=== PATIENT | female | born 1930 | race African-American/Black ===

== ENCOUNTER → 2017-06-05 | Outpatient (CLI) | payer MEDICARE, OTHER ==
[~2017-06-05] MED LIST: BUPIVACAINE MPF 0.25% 10 ML VIAL.; methylPREDNISolone ACETATE 40 MG/ML VIAL.
== END ==
LOC: PNCL 11:39
DX: M54.81 Occipital neuralgia (principal); Z88.0 Allergy status to penicillin; Z88.1 Allergy status to other antibiotic agents; Z88.8 Allergy status to other drugs, medicaments and biological substances; Z79.01 Long term (current) use of anticoagulants; Z95.0 Presence of cardiac pacemaker; Z79.899 Other long term (current) drug therapy
CPT/HCPCS: 64405; J1030; J3490

== ENCOUNTER → 2018-04-16 | Day surgery (SDC) | payer MEDICARE, OTHER ==
[~2018-04-16] MED LIST changes: +ACET1TAB33 PO; +ACET325T9 PO; +ALLO100T PO; +ALPR0.254 PO; +ALPR0.5T PO; +AMIO200T4 PO; +APIX2.5T PO; +ASPI-630 PO; +ATOR10TA PO; +ATOR10TA60 PO; +ATOR40TA59 PO; +BUDE0.5A NEB; -BUPIVACAINE MPF 0.25% 10 ML VIAL.; +BUPR1PAT8 TP; +BYSTOLIC10 MG PO; +CALC500T31 PO; +CHOL500016 PO; +DICL100G18 TP; +DILT30TA26 PO; +DOXY100C2 PO; +ESOM40CA25 PO; +FERR325C PO; +FURO20TA3 PO; +FURO40TA4 IVP; +FURO40TA4 PO; +GLIM4TAB2 PO; +GLIP10TA13 PO; +HYDR-2761 PO; +INSU100C SQ; +INSU100I13 SQ; +INSU100V13 SQ; +IPRA3AMP29 NEB; +ISOS30TA4 PO; +IV NORMAL SALINE 1000ML BAG 1,000 ML IV SCH; +LIDO700A21 TP; +LIDOCAINE; +LIDOCAINE 1% PF 2 ML VIAL. ONE; +LISI-338 PO; +MAGN400T22 PO; +MAGN400T3 PO; +MECL12.52 PO; +MECL25TA3 PO; +METH4TAB2 PO; +METH4TAB7 IVP; +METO25TA4 PO; +MONT10TA49 PO; +NIFE60TA12 PO; +NITR0.4T22 SL; +PANT40TA77 PO; +PHEN177S54 MM; +PIOG15TA42 PO; +PRED20TA PO; +PROPOFOL 20 ML IV ONE; +ROPI0.5T PO; +SENN-37 PO; +SUCR1TAB35 PO; +TRAZ-118 PO; +UBID100C PO; +[UNRECOGNIZED DRUG - OTHER]; -methylPREDNISolone ACETATE 40 MG/ML VIAL.
[2018-04-16 11:28] VITALS: BP 144/89
--- NOTE | 2018-04-19 14:19 | PATHOLOGY ---
[facility] Accession Number: [id number] . 01 Material submitted: . TRANSVERSE COLON POLYP . 01 Clinical history: . Rectal bleeding . 02 Diagnosis: Colon biopsy, transverse colon polyp: - Tubular adenoma. . (JPM:mm; 04/19/2018) QL/04/19/2018 . 02 Comment: There is no high grade dysplasia or evidence of malignancy. . (JPM:mm; 04/19/2018) . 02 Electronically signed: . Florian Prabhakar MD, Pathologist NPI- [id number] . 01 Gross description: . Received in formalin labeled "Flucas, Shaina, transverse colon polyp," is a single segment of carrillo soft tissue measuring 0.4 cm in maximum dimension. The specimen is entirely submitted in cassette A1. (TSD; 04/16/2018) TOB/TOB . 02 Pathologist provided ICD-10: D12.3 . 02 CPT . 080247 Specimen Comment: A courtesy copy of this report has been sent to Specimen Comment: [phone], . Specimen Comment: Report sent to / DR MADRIGAL Performed at: 01 [facility] [address], [place] [id number] MD Obi Woodall MD Phone: [phone] Performed at: 02 [facility] [address] [place], [place] [id number] MD Florian Prabhakar MD Phone: [phone]
== END | disposition home or self-care (01) ==
LOC: ENDOS 09:00
PROVIDERS: ATTEND Internal Medicine Gastroenterology
DX: D12.3 Benign neoplasm of transverse colon (principal); K64.0 First degree hemorrhoids; K57.30 Diverticulosis of large intestine without perforation or abscess without bleeding; I48.91 Unspecified atrial fibrillation; I25.10 Atherosclerotic heart disease of native coronary artery without angina pectoris; I13.0 Hypertensive heart and chronic kidney disease with heart failure and stage 1 through stage 4 chronic kidney disease, or unspecified chronic kidney disease; I50.9 Heart failure, unspecified; E11.22 Type 2 diabetes mellitus with diabetic chronic kidney disease; N18.9 Chronic kidney disease, unspecified; K21.9 Gastro-esophageal reflux disease without esophagitis; M19.90 Unspecified osteoarthritis, unspecified site; D64.9 Anemia, unspecified; N28.1 Cyst of kidney, acquired; I27.20 Pulmonary hypertension, unspecified; Z90.49 Acquired absence of other specified parts of digestive tract; Z95.0 Presence of cardiac pacemaker; Z96.653 Presence of artificial knee joint, bilateral; Z86.73 Personal history of transient ischemic attack (TIA), and cerebral infarction without residual deficits; Z88.0 Allergy status to penicillin; Z88.1 Allergy status to other antibiotic agents; Z88.8 Allergy status to other drugs, medicaments and biological substances; Z79.899 Other long term (current) drug therapy; Z98.890 Other specified postprocedural states
CPT/HCPCS: 45380; 82962; J2704; 88305

== ENCOUNTER 2018-08-06 10:29 | Emergency (ER) | payer MEDICARE, OTHER ==
[~2018-08-06] VITALS: Ht 163.8 cm; Wt 81.6 kg
[~2018-08-06 10:29] MED LIST changes: -DOXY100C2 PO; -IPRATRPIUM/ALBUTEROL 0.5/2.5MG 3 ML NEBU. NEB ONE; -IV RINGERS,LACTATED 1000ML 1,000 ML IV SCH; -LIDOCAINE 1% PF 2 ML VIAL. ID PRN; -METH4TAB2 PO; -MIDAZOLAM HCL/PF 2 MG/2 ML VIAL. IV PRN; -fentaNYL PF VIAL 100 MCG/2 ML VIAL IV PRN
[2018-08-06] MEDS ORDERED: IPRATRPIUM/ALBUTEROL 0.5/2.5MG 3 ML NEBU. NEB ONE (11:00)
[2018-08-06] MEDS ORDERED: ALBUTEROL SULFATE 2.5 MG/3 ML NEBU. CONT NEB ONE (11:00)
--- NOTE | 2018-08-06 11:07 | RAD ---
PORTABLE CHEST 1V History: Chest pain, shortness of breath Comparison: March 19, 2018 Findings: Single view of the chest is submitted. There is again left electronic cardiac device. Pericardial cardiac silhouette is enlarged although unchanged. There is no pneumothorax, pleural fluid, lobar infiltrate. There is atherosclerotic calcification near aortic arch. Impression: 1. No acute radiographic abnormality is identified. There is again enlargement of the pericardial cardiac silhouette. Electronically signed by: Giovanni Be MD (08/06/2018 11:04 AM) [facility]
--- NOTE | 2018-08-06 11:20 | EKG ---
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
[2018-08-06 12:10] LABS: CALCIUM 9.5 mg/dL (8.5-10.1); CREATININE 1.8 mg/dL (0.6-1.0); GFR 32.1; POTASSIUM 4.6 mmol/L (3.5-5.1)
[2018-08-06 12:19] LABS: ALBUMIN 3.9 g/dL (3.4-5.0); ALBUMIN/GLOBULIN RATIO 1.2 (1.0-1.7); TOTAL BILIRUBIN 0.3 mg/dL (0.2-1.0); TOTAL PROTEIN 7.1 g/dL (6.4-8.2)
[2018-08-06] MEDS ORDERED: methylPREDNISolone SOD SUCC PF 125 MG/2 ML VIAL. IV ONE (13:30)
[2018-08-06 13:52] LABS: BASO % 1 % (0-3); EOS # 0.1 x10^3/uL (0.0-0.7); EOS % 2 % (0-3); HEMATOCRIT 34.5 % (36.0-47.0); LYMPH # 2.9 x10^3/uL (1.0-4.8); LYMPH % 38 % (24-48); MEAN CORPUSCULAR HEMOGLOBIN 28 pg (25-35); MEAN CORPUSCULAR HGB CONC 32 g/dL (31-37); MEAN CORPUSCULAR VOLUME 89 fL (79-100); MONO # 0.5 x10^3/uL (0.0-1.1); MONO % 7 % (0-9); NEUT # 4.2 x10^3uL (1.8-7.7); NEUT % 54 % (31-73); PLATELET COUNT 159 x10^3/uL (140-400); RED CELL DISTRIBUTION WIDTH 15.8 % (11.5-14.5); WHITE BLOOD COUNT 7.8 x10^3/uL (4.0-11.0)
[2018-08-06] MEDS ORDERED: DOXYCYCLINE HYCLATE 100 MG in IV DEXTROSE 5% 100ML 100 ML IV ONE (14:00)
[2018-08-06] MEDS ORDERED: DOXY100C2 PO (14:16)
[2018-08-06] MEDS ORDERED: METH4TAB2 PO (14:16)
--- NOTE | 2018-08-06 14:17 | PHYS DOC ---
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 Patient had a scheduled endoscopy today and complaining of shortness of breath for a few days and sent from GI lab to ER for evaluation. Patient complaining of nonproductive cough without fever and chills. Patient noticed chest pain, nausea and vomiting, urinary symptom, sick contact. Review of Systems Review of Systems Constitutional: Denies fever or chills [] Eyes: Denies change in visual acuity, redness, or eye pain [] HENT: Denies nasal congestion or sore throat [] Respiratory: Reports cough and shortness of breath Cardiovascular: No additional information not addressed in HPI [] GI: Denies abdominal pain, nausea, vomiting, bloody stools or diarrhea [] : Denies dysuria or hematuria [] Musculoskeletal: Denies back pain or joint pain [] Integument: Denies rash or skin lesions [] Neurologic: Denies headache, focal weakness or sensory changes [] Endocrine: Denies polyuria or polydipsia [] All other systems were reviewed and found to be within normal limits, except as documented in this note. Current Medications Current Medications Current Medications Medications (Trade) Dose Ordered Sig/Nissa Start Time Stop Time Status Last Admin Dose Admin Albuterol Sulfate (Ventolin Neb Soln) 15 mg 1X ONCE 08/06/18 11:00 08/06/18 11:01 DC 08/06/18 11:09 15 MG Albuterol/ Ipratropium (Duoneb) 3 ml 1X ONCE 08/06/18 11:00 08/06/18 11:01 DC 08/06/18 11:09 3 ML Doxycycline Hyclate 100 mg/ Dextrose 100 ml @ 50 mls/hr 1X ONCE 08/06/18 14:00 08/06/18 15:54 DC 08/06/18 13:39 50 MLS/HR Methylprednisolone Sodium Succinate (SOLU-Medrol 125MG VIAL) 125 mg 1X ONCE 08/06/18 13:30 08/06/18 13:31 DC 08/06/18 13:38 125 MG Allergies Allergies Allergies Coded Allergies Type Severity Reaction Last Updated Verified Penicillins Allergy Intermediate rash 08/06/18 Yes amoxicillin Allergy Intermediate rash 08/06/18 Yes cephalexin Allergy Intermediate rash 08/06/18 Yes clavulanic acid Allergy Intermediate rash 08/06/18 Yes cyclobenzaprine Allergy Intermediate 08/06/18 Yes influenza virus vaccine trivalent Allergy Intermediate 08/06/18 Yes metoclopramide Allergy Intermediate 08/06/18 Yes Physical Exam Physical Exam Constitutional: Well developed, well nourished, mild distress, non-toxic appearance. [] HENT: Normocephalic, atraumatic Eyes: PERRLA, EOMI, conjunctiva normal, no discharge. [] Neck: Normal range of motion, no tenderness, supple, no stridor. [] Cardiovascular:Heart rate regular rhythm, no murmur [] Lungs & Thorax: Bilateral breath sounds clear to auscultation [] Abdomen: Bowel sounds normal, soft, no tenderness, no masses, no pulsatile masses. [] Skin: Warm, dry, no erythema, no rash. [] Back: No tenderness, no CVA tenderness. [] Extremities: No tenderness, no cyanosis, no clubbing, ROM intact, no edema. [] Neurologic: Alert and oriented X 3, normal motor function, normal sensory function, no focal deficits noted. [] Psychologic: Affect anxious, judgement normal, mood normal. [] Current Patient Data Vital Signs Vital Signs Date Time Temp Pulse Resp B/P (MAP) Pulse Ox O2 Delivery O2 Flow Rate FiO2 08/06/18 15:00 72 151/67 (95) 97 Room Air 08/06/18 10:29 98.1 18 98.1 Lab Values Laboratory Tests Test 08/06/18 11:40 08/06/18 11:54 08/06/18 11:55 Sodium Level 144 mmol/L (136-145) Potassium Level 4.6 mmol/L (3.5-5.1) Chloride Level 106 mmol/L (98-107) Carbon Dioxide Level 27 mmol/L (21-32) Anion Gap 11 (6-14) Blood Urea Nitrogen 22 mg/dL (7-20) H Creatinine 1.8 mg/dL (0.6-1.0) H Estimated GFR (Cockcroft-Gault) 32.1 BUN/Creatinine Ratio 12 (6-20) Glucose Level 116 mg/dL (70-99) H Calcium Level 9.5 mg/dL (8.5-10.1) Total Bilirubin 0.3 mg/dL (0.2-1.0) Aspartate Amino Transferase (AST) 18 U/L (15-37) Alanine Aminotransferase (ALT) 15 U/L (14-59) Alkaline Phosphatase 47 U/L (46-116) Creatine Kinase 108 U/L (26-192) Troponin I Quantitative 0.043 ng/mL (0.000-0.055) TU-Qcv-K-Type Natriuretic Peptide 1236 pg/mL (0-449) H Total Protein 7.1 g/dL (6.4-8.2) Albumin 3.9 g/dL (3.4-5.0) Albumin/Globulin Ratio 1.2 (1.0-1.7) POC Troponin I 0.05 ng/ml (<0.08) White Blood Count 7.8 x10^3/uL (4.0-11.0) Red Blood Count 3.90 x10^6/uL (3.50-5.40) Hemoglobin 11.0 g/dL (12.0-15.5) L Hematocrit 34.5 % (36.0-47.0) L Mean Corpuscular Volume 89 fL (79-100) Mean Corpuscular Hemoglobin 28 pg (25-35) Mean Corpuscular Hemoglobin Concent 32 g/dL (31-37) Red Cell Distribution Width 15.8 % (11.5-14.5) H Platelet Count 159 x10^3/uL (140-400) Neutrophils (%) (Auto) 54 % (31-73) Lymphocytes (%) (Auto) 38 % (24-48) Monocytes (%) (Auto) 7 % (0-9) Eosinophils (%) (Auto) 2 % (0-3) Basophils (%) (Auto) 1 % (0-3) Neutrophils # (Auto) 4.2 x10^3uL (1.8-7.7) Lymphocytes # (Auto) 2.9 x10^3/uL (1.0-4.8) Monocytes # (Auto) 0.5 x10^3/uL (0.0-1.1) Eosinophils # (Auto) 0.1 x10^3/uL (0.0-0.7) Basophils # (Auto) 0.0 x10^3/uL (0.0-0.2) Laboratory Tests 08/06/18 11:55 Laboratory Tests 08/06/18 11:40 EKG EKG EKG interpreted by me. EKG at 1042 showed sinus rhythm at rate of 70, prolonged MD interval at 3 axis deviation, nonspecific intraventricular block, no acute ST and T-wave abnormalities. Radiology/Procedures Radiology/Procedures [facility] [address] [place] [address] IMAGING REPORT Signed PATIENT: EM GOLDSTEIN ACCOUNT: [id number] : 1930 LOCATION: ER AGE: 88 SEX: F EXAM STATUS: REG ER ORD. PHYSICIAN: ROSANA HERNANDEZ MD REASON: chest pain and shortness of breath PROCEDURE: PORTABLE CHEST 1V PORTABLE CHEST 1V History: Chest pain, shortness of breath Comparison: March 19, 2018 Findings: Single view of the chest is submitted. There is again left electronic cardiac device. Pericardial cardiac silhouette is enlarged although unchanged. There is no pneumothorax, pleural fluid, lobar infiltrate. There is atherosclerotic calcification near aortic arch. Impression: 1. No acute radiographic abnormality is identified. There is again enlargement of the pericardial cardiac silhouette. Electronically signed by: Mack Be MD (08/06/2018 11:04 AM) [facility] DICTATED and SIGNED BY: MACK BE MD DATE: 08/06/18 1104 Course & Med Decision Making Course & Med Decision Making Pertinent Labs and Imaging studies reviewed. (See chart for details) Evaluation of patient in ER showed 88-year-old female patient with history of COPD and complaining of shortness of breath for several days. Patient had O2 sat of more than 95% upon she was in ER. Patient had unremarkable labs and chest x- ray. Patient treated with Solu-Medrol and nebulizer treatment and felt better. Plan to discharge patient home with diagnose of COPD exacerbation. Dragon Disclaimer Dragon Disclaimer This [employer] medical record was generated, in whole or in part, using a voice recognition dictation system. Departure Departure Impression: Primary Impression: Acute exacerbation of chronic obstructive pulmonary disease (COPD) Additional Impression: Chronic renal insufficiency Disposition: HOME, SELF-CARE (at 1409) Condition: IMPROVED Referrals: OLEG MADRIGAL MD (PCP) Patient Instructions: Chronic Obstructive Pulmonary Disease Exacerbation, Chronic Renal Insufficiency Additional Instructions: Continue home medication Follow-up with your primary care physician in 3-5 days Return to ER if not getting better Scripts Methylprednisolone (MEDROL) 4 Mg Tab.ds.pk 1 PKG PO UD for inflammation, #1 PKG Prov: ROSANA HERNANDEZ MD 08/06/18 Doxycycline Hyclate (DOXYCYCLINE HYCLATE) 100 Mg Capsule 1 CAP PO BID, #14 CAP Prov: ROSANA HERNANDEZ MD 08/06/18 Problem Qualifiers Additional Impression: Chronic renal insufficiency Chronic kidney disease stage: unspecified stage Qualified Codes: N18.9 - Chronic kidney disease, unspecified ROSANA HERNANDEZ MD August 06, 2018 14:17
[2018-08-06 15:00] VITALS: BP 151/67
== END 2018-08-06 15:50 | disposition home or self-care (01) ==
LOC: ER 10:29
DX: J44.1 Chronic obstructive pulmonary disease with (acute) exacerbation (principal); E11.22 Type 2 diabetes mellitus with diabetic chronic kidney disease; I13.0 Hypertensive heart and chronic kidney disease with heart failure and stage 1 through stage 4 chronic kidney disease, or unspecified chronic kidney disease; I50.9 Heart failure, unspecified; N18.9 Chronic kidney disease, unspecified; Z86.73 Personal history of transient ischemic attack (TIA), and cerebral infarction without residual deficits; Z90.89 Acquired absence of other organs; Z90.49 Acquired absence of other specified parts of digestive tract; Z96.649 Presence of unspecified artificial hip joint; Z96.659 Presence of unspecified artificial knee joint
CPT/HCPCS: 36415; 71045; 80053; 82550; 83880; 84484; 85025; 93005; 94644; 96365; 96366; 96375; 99285; J2930; J3490; J7613; J7620; 94640

== ENCOUNTER → 2018-08-06 | Day surgery (SDC) | payer MEDICARE, OTHER ==
[~2018-08-06] MED LIST changes: +IPRATRPIUM/ALBUTEROL 0.5/2.5MG 3 ML NEBU. NEB ONE; -IV NORMAL SALINE 1000ML BAG 1,000 ML IV SCH; +IV RINGERS,LACTATED 1000ML 1,000 ML IV SCH; -LIDO700A21 TP; +LIDO700A39 TP; +LIDOCAINE 1% PF 2 ML VIAL. ID PRN; -LIDOCAINE 1% PF 2 ML VIAL. ONE; +MIDAZOLAM HCL/PF 2 MG/2 ML VIAL. IV PRN; -MONT10TA49 PO; +MONT10TA9 PO; +PANT40TA3 PO; -PANT40TA77 PO; -PROPOFOL 20 ML IV ONE; +fentaNYL PF VIAL 100 MCG/2 ML VIAL IV PRN
[2018-08-06 10:05] VITALS: BP 127/63
== END ==
LOC: ENDOS 09:24
PROVIDERS: ATTEND Internal Medicine Gastroenterology
DX: K31.89 Other diseases of stomach and duodenum (principal); Z53.9 Procedure and treatment not carried out, unspecified reason; K21.9 Gastro-esophageal reflux disease without esophagitis; E78.00 Pure hypercholesterolemia, unspecified; I25.2 Old myocardial infarction; K44.9 Diaphragmatic hernia without obstruction or gangrene; I25.10 Atherosclerotic heart disease of native coronary artery without angina pectoris; F32.9 Major depressive disorder, single episode, unspecified; E11.9 Type 2 diabetes mellitus without complications; J43.9 Emphysema, unspecified; Z88.1 Allergy status to other antibiotic agents; Z88.0 Allergy status to penicillin; Z88.8 Allergy status to other drugs, medicaments and biological substances; Z95.0 Presence of cardiac pacemaker; Z86.73 Personal history of transient ischemic attack (TIA), and cerebral infarction without residual deficits; Z79.82 Long term (current) use of aspirin; Z98.890 Other specified postprocedural states; Z90.49 Acquired absence of other specified parts of digestive tract; Z96.649 Presence of unspecified artificial hip joint; Z96.659 Presence of unspecified artificial knee joint; Z79.84 Long term (current) use of oral hypoglycemic drugs
CPT/HCPCS: 94640

== ENCOUNTER 2019-09-20 18:08 | Inpatient (IN) | payer MEDICARE, OTHER ==
[~2019-09-20] VITALS: Ht 163.8 cm; Wt 84.6 kg
[~2019-09-20 18:08] MED LIST changes: -DICL100G18 TP; +DICL100G54 TP; +DOXY100C2 PO; -GLIM4TAB2 PO; +GLIM4TAB8 PO; +LIDO700A21 TP; -LIDO700A39 TP; -MAGN400T3 PO; +MAGN400T5 PO; +MECL-75 PO; -MECL12.52 PO; +MECL12.573 PO; -MECL25TA3 PO; +METH4TAB2 PO; +MONT10TA49 PO; -MONT10TA9 PO; -PANT40TA3 PO; +PANT40TA77 PO
[2019-09-20 18:35] LABS: BASO # 0.1 x10^3/uL (0.0-0.2); BASO % 1 % (0-3); EOS # 0.2 x10^3/uL (0.0-0.7); EOS % 2 % (0-3); HEMATOCRIT 28.1 % (36.0-47.0); HEMOGLOBIN 9.4 g/dL (12.0-15.5); LYMPH # 3.4 x10^3/uL (1.0-4.8); LYMPH % 33 % (24-48); MEAN CORPUSCULAR HEMOGLOBIN 29 pg (25-35); MEAN CORPUSCULAR HGB CONC 34 g/dL (31-37); MEAN CORPUSCULAR VOLUME 87 fL (79-100); MONO # 0.7 x10^3/uL (0.0-1.1); MONO % 7 % (0-9); NEUT # 5.7 x10^3/uL (1.8-7.7); NEUT % 57 % (31-73); PLATELET COUNT 188 x10^3/uL (140-400); RED BLOOD COUNT 3.24 x10^6/uL (3.50-5.40); RED CELL DISTRIBUTION WIDTH 15.6 % (11.5-14.5)
--- NOTE | 2019-09-20 18:42 | RAD ---
INDICATION: Reason: chest pain / Spl. Instructions: / History: COMPARISON: August 06, 2018 FINDINGS: Single view of chest obtained. Degenerative changes of bilateral shoulders as well as acromioclavicular joints. Postoperative changes to the lower cervical spine with fusion hardware. Cardiac silhouette is mildly enlarged with calcific atherosclerosis as well as pacemaker are again seen. No definite new region of focal airspace consolidation. IMPRESSION: * Similar exam compared to prior without a new region of consolidation. Electronically signed by: Brady Cole MD (09/20/2019 6:39 PM) [id number]
[2019-09-20 18:44] LABS: CALCIUM 8.8 mg/dL (8.5-10.1); CREATININE 2.4 mg/dL (0.6-1.0); POTASSIUM 3.8 mmol/L (3.5-5.1)
[2019-09-20 18:50] LABS: ALBUMIN 3.6 g/dL (3.4-5.0); ALBUMIN/GLOBULIN RATIO 1.1 (1.0-1.7); TOTAL BILIRUBIN 0.2 mg/dL (0.2-1.0); TOTAL PROTEIN 6.9 g/dL (6.4-8.2)
--- NOTE | 2019-09-20 18:58 | PHYS DOC ---
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 Patient states chest pain substernal in the left chest. At times radiates up to the left neck. Patient states pain is been constant since onset. She states she has some shortness of breath has had some nausea. She rates her pain a 4 out of 10. Was treated with aspirin by EMS. Patient states at home she is taken nitro with minimal relief. Review of Systems: Review of Systems: Constitutional: Denies fever or chills. [] Eyes: Denies change in visual acuity. [] HENT: Denies nasal congestion or sore throat. [] Respiratory: Denies cough positive shortness of breath. [] Cardiovascular: Positive chest pain GI: Denies abdominal pain,vomiting, bloody stools or diarrhea. [Positive nausea] : Denies dysuria. [] Musculoskeletal: Denies back pain or joint pain. [] Integument: Denies rash. [] Neurologic: Denies headache, focal weakness or sensory changes. [] Endocrine: Denies polyuria or polydipsia. [] Lymphatic: Denies swollen glands. [] Psychiatric: Denies depression or anxiety. [] Heart Score: HEART Score for Chest Pain: HEART Score for Chest Pain Response (Comments) Value History Moderately Suspicious 1 ECG Nonspecific Repolarizatio 1 Age > 65 2 Risk Factors >3 Risk Factors or Hx CAD 2 Troponin < Normal Limit 0 Total 6 Risk Factors: Risk Factors: DM, Current or recent (<one month) smoker, HTN, HLP, family history of CAD, obesity. Risk Scores: Score 0 - 3: 2.5% MACE over next 6 weeks - Discharge Home Score 4 - 6: 20.3% MACE over next 6 weeks - Admit for Clinical Observation Score 7 - 10: 72.7% MACE over next 6 weeks - Early Invasive Strategies Allergies: Allergies: Allergies Coded Allergies Type Severity Reaction Last Updated Verified Penicillins Allergy Intermediate rash 5/31/19 Yes amoxicillin Allergy Intermediate rash 08/06/18 Yes cephalexin Allergy Intermediate rash 08/06/18 Yes clavulanic acid Allergy Intermediate rash 08/06/18 Yes cyclobenzaprine Allergy Intermediate 08/06/18 Yes influenza virus vaccine trivalent Allergy Intermediate 08/06/18 Yes metoclopramide Allergy Intermediate 08/06/18 Yes Physical Exam: PE: Constitutional: Well developed, well nourished, no acute distress, non-toxic appearance. [] HENT: Normocephalic, atraumatic, bilateral external ears normal, oropharynx moist, no oral exudates, nose normal. [] Eyes: PERRLA, EOMI, conjunctiva normal, no discharge. [] Neck: Normal range of motion, no tenderness, supple, no stridor. [] Cardiovascular:Heart rate regular rhythm, no murmur [] Lungs & Thorax: Bilateral breath sounds clear to auscultation [] Abdomen: Bowel sounds normal, soft, no tenderness, no masses, no pulsatile masses. [] Skin: Warm, dry, no erythema, no rash. [] Back: No tenderness, no CVA tenderness. [] Extremities: No tenderness, no cyanosis, no clubbing, ROM intact, no edema. [] Neurologic: Alert and oriented X 3, normal motor function, normal sensory function, no focal deficits noted. [] Psychologic: Affect normal, judgement normal, mood normal. [] Current Patient Data: Labs: Laboratory Tests Test 09/20/19 18:25 White Blood Count 10.0 x10^3/uL (4.0-11.0) Red Blood Count 3.24 x10^6/uL (3.50-5.40) L Hemoglobin 9.4 g/dL (12.0-15.5) L Hematocrit 28.1 % (36.0-47.0) L Mean Corpuscular Volume 87 fL (79-100) Mean Corpuscular Hemoglobin 29 pg (25-35) Mean Corpuscular Hemoglobin Concent 34 g/dL (31-37) Red Cell Distribution Width 15.6 % (11.5-14.5) H Platelet Count 188 x10^3/uL (140-400) Neutrophils (%) (Auto) 57 % (31-73) Lymphocytes (%) (Auto) 33 % (24-48) Monocytes (%) (Auto) 7 % (0-9) Eosinophils (%) (Auto) 2 % (0-3) Basophils (%) (Auto) 1 % (0-3) Neutrophils # (Auto) 5.7 x10^3/uL (1.8-7.7) Lymphocytes # (Auto) 3.4 x10^3/uL (1.0-4.8) Monocytes # (Auto) 0.7 x10^3/uL (0.0-1.1) Eosinophils # (Auto) 0.2 x10^3/uL (0.0-0.7) Basophils # (Auto) 0.1 x10^3/uL (0.0-0.2) Sodium Level 140 mmol/L (136-145) Potassium Level 3.8 mmol/L (3.5-5.1) Chloride Level 102 mmol/L (98-107) Carbon Dioxide Level 28 mmol/L (21-32) Anion Gap 10 (6-14) Blood Urea Nitrogen 33 mg/dL (7-20) H Creatinine 2.4 mg/dL (0.6-1.0) H Estimated GFR (Cockcroft-Gault) 23.0 BUN/Creatinine Ratio 14 (6-20) Glucose Level 78 mg/dL (70-99) Calcium Level 8.8 mg/dL (8.5-10.1) Total Bilirubin 0.2 mg/dL (0.2-1.0) Aspartate Amino Transferase (AST) 27 U/L (15-37) Alanine Aminotransferase (ALT) 25 U/L (14-59) Alkaline Phosphatase 68 U/L (46-116) Total Protein 6.9 g/dL (6.4-8.2) Albumin 3.6 g/dL (3.4-5.0) Albumin/Globulin Ratio 1.1 (1.0-1.7) Laboratory Tests 09/20/19 18:25 Laboratory Tests 09/20/19 18:25 Vital Signs: Vital Signs Date Time Temp Pulse Resp B/P (MAP) Pulse Ox O2 Delivery O2 Flow Rate FiO2 09/20/19 18:10 98.1 95 18 123/60 (81) 98 Nasal Cannula 3.0 98.1 EKG: EKG: [] EKG time 1813 Sinus rhythm intraventricular block rate of 75 No acute changes when compared to previous EKG. Radiology/Procedures: Radiology/Procedures: [] Impression: Single view of chest obtained. Degenerative changes of bilateral shoulders as well as acromioclavicular joints. Postoperative changes to the lower cervical spine with fusion hardware. Cardiac silhouette is mildly enlarged with calcific atherosclerosis as well as pacemaker are again seen. No definite new region of focal airspace consolidation. IMPRESSION: * Similar exam compared to prior without a new region of consolidation. Electronically signed by: Brady Cole MD (09/20/2019 6:39 PM) [id number] Course & Med Decision Making: Course & Med Decision Making Pertinent Labs and Imaging studies reviewed. (See chart for details) [] Was evaluated for chief complaint. Work-up consisted of laboratory analysis radiologic imaging and EKG. Results reviewed and discussed with patient and family. EKG no acute ischemic changes. Troponin within normal limits. Patient received aspirin prior to arrival. Patient was treated with fentanyl with improvement and resolution of discomfort. Patient was admitted to the hospitalist for further evaluation and treatment. Dragon Disclaimer: Dragon Disclaimer: This electronic medical record was generated, in whole or in part, using a voice recognition dictation system. Departure Departure Impression: Primary Impression: Chest pain Disposition: ADMITTED INPATIENT Admitting Physician: BENJAMIN Condition: STABLE Referrals: OLEG MADRIGAL MD (PCP) Justicifation of Admission Dx: Justifications for Admission: Justification of Admission Dx: Yes Comments: Chest Pain RONNELLHENRI Bill DO Sep 20, 2019 18:58
[2019-09-20] MEDS ORDERED: fentaNYL PF VIAL 100 MCG/2 ML VIAL IVP ONE (19:30)
[2019-09-20] MEDS ORDERED: fentaNYL PF VIAL 100 MCG/2 ML VIAL IV PRN (20:30)
[2019-09-20] MEDS ORDERED: ONDANSETRON PF 4 MG/2 ML VIAL. IV PRN (20:30)
--- NOTE | 2019-09-20 22:00 | NUR ---
pt admitted to 250 with chest pain, assessment complete, oriented to unit, staff, and poc. pt denies chest pain at this time. Admit packet given, vss. dr almeida notified of consult new orders received ,will cont to monitor pt safety and status. pmrn
[2019-09-20 22:05] VITALS: BP 127/52
[2019-09-20] MEDS ORDERED: FUROSEMIDE 20 MG/2 ML VIAL. IVP ONE (23:15)
[2019-09-20] MEDS ORDERED: IPRATRPIUM/ALBUTEROL 0.5/2.5MG 3 ML NEBU. NEB ONE (23:15)
[2019-09-21] MEDS ORDERED: rOPINIRole 0.25 MG TABLET. PO ONE
[2019-09-21] MEDS ORDERED: traZODone 50 MG TABLET. PO ONE
[2019-09-21] MEDS: ACETAMINOPHEN 325 MG TABLET. PO PRN ×2 (00:15→12:58)
[2019-09-21 01:56] LABS: CALCIUM 8.6 mg/dL (8.5-10.1); CREATININE 2.5 mg/dL (0.6-1.0); GFR 21.9; POTASSIUM 4.3 mmol/L (3.5-5.1)
[2019-09-21 03:20] VITALS: BP 144/71
[2019-09-21 03:54] LABS: BASO % 1 % (0-3); EOS # 0.1 x10^3/uL (0.0-0.7); EOS % 2 % (0-3); HEMATOCRIT 26.2 % (36.0-47.0); HEMOGLOBIN 8.7 g/dL (12.0-15.5); LYMPH # 2.1 x10^3/uL (1.0-4.8); LYMPH % 30 % (24-48); MEAN CORPUSCULAR HEMOGLOBIN 29 pg (25-35); MEAN CORPUSCULAR HGB CONC 33 g/dL (31-37); MEAN CORPUSCULAR VOLUME 88 fL (79-100); MONO # 0.5 x10^3/uL (0.0-1.1); MONO % 7 % (0-9); NEUT # 4.4 x10^3/uL (1.8-7.7); NEUT % 61 % (31-73); PLATELET COUNT 170 x10^3/uL (140-400); RED BLOOD COUNT 2.98 x10^6/uL (3.50-5.40); RED CELL DISTRIBUTION WIDTH 15.8 % (11.5-14.5); WHITE BLOOD COUNT 7.1 x10^3/uL (4.0-11.0)
[2019-09-21 04:09] LABS: CALCIUM 8.7 mg/dL (8.5-10.1); CREATININE 2.5 mg/dL (0.6-1.0); GFR 21.9; POTASSIUM 4.8 mmol/L (3.5-5.1)
[2019-09-21 04:16] LABS: CHOLESTEROL/HDL RATIO 3.2; MAGNESIUM 2.3 mg/dL (1.8-2.4)
--- NOTE | 2019-09-21 04:57 | EKG ---
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
[2019-09-21] MEDS ORDERED: METO-239 PO (05:13)
[2019-09-21] MEDS ORDERED: ALPR0.5T6 (05:13)
[2019-09-21] MEDS ORDERED: SERT25TA4 PO (05:13)
[2019-09-21] MEDS ORDERED: AMLO5TAB4 PO ×2 (05:13)
[2019-09-21 06:25] VITALS: BP 137/63
[2019-09-21] MEDS: IPRATRPIUM/ALBUTEROL 0.5/2.5MG 3 ML NEBU. NEB SCH ×4 (07:45→20:24)
--- NOTE | 2019-09-21 08:53 | PDOC2 ---
CHAVO VELEZ SUPPLY COORDINATOR 09/21/19 0853: CARDIAC CONSULT DATE OF CONSULT Date of Consult DATE: 09/21/19 TIME: 08:39 REASON FOR CONSULT Reason for Consult: Chest pain REFERRING PHYSICIAN Referring Physician: Dr. Bragg SOURCE Source: Chart review, Patient HISTORY OF PRESENT ILLNESS HISTORY OF PRESENT ILLNESS This is an 89 yo female who presented secondary to chest pain. Patient reports pain has been intermittent for the last 2 years. No specific precipitating factors. Takes nitro PRN. Yesterday, pain was intense and nitro did not relieve so she came to the ED for further evaluation and treatment. Pain was located in her left chest. Describes as tightness. Associated with shortness of breath and diaphoresis. No nausea/vomiting or palpitations. Has a history of CAD s/p PCI/stents. Follows with Dr. Desai. Reports having blockage that cant be fix. No further details known. PAST MEDICAL HISTORY Past Medical History Cardiovascular: AFIB (paroxysmal), CAD, CHF, HTN, Hyperlipidemia, Other (PVD; SSS) Pulmonary: COPD, Other (severe pulmonary HTN) CENTRAL NERVOUS SYSTEM: CVA GI: GERD Heme/Onc: Anemia NOS, Other (hx of dvt) Hepatobiliary: No pertinent hx Psych: Depression Musculoskeletal: Osteoarthritis Infectious disease: No pertinent hx Renal/: Chronic renal insuff Endocrine: Diabetes (2) PAST SURGICAL HISTORY Past Surgical History Pacemaker, Total knee replacement (bilateral), Other (PCI/stent 2017) FAMILY HISTORY Family History: Other (noncontributory ) SOCIAL HISTORY Social History Smoke: No ALCOHOL: none Drugs: None Lives: with Family CURRENT MEDICATIONS CURRENT MEDICATIONS Current Medications Medications (Trade) Dose Ordered Sig/Nissa Route PRN Reason Start Time Stop Time Status Last Admin Dose Admin Fentanyl Citrate (Fentanyl 2ml Vial) 25 mcg 1X ONCE IVP 09/20/19 19:30 09/20/19 19:31 DC 09/20/19 19:30 Furosemide (Lasix) 20 mg 1X ONCE IVP 09/20/19 23:15 09/20/19 23:18 DC 09/20/19 23:36 Albuterol/ Ipratropium (Duoneb) 3 ml RTQID NEB 09/21/19 08:00 09/21/19 07:45 Albuterol/ Ipratropium (Duoneb) 3 ml 1X ONCE NEB 09/20/19 23:15 09/20/19 23:18 DC 09/20/19 23:40 Ropinirole HCl (Requip) 0.5 mg 1X ONCE PO 09/21/19 00:00 09/21/19 00:02 DC 09/21/19 00:15 Trazodone HCl (Desyrel) 50 mg 1X ONCE PO 09/21/19 00:00 09/21/19 00:02 DC 09/21/19 00:15 Acetaminophen (Tylenol) 650 mg PRN Q6HRS PRN PO MILD PAIN / TEMP > 100.3'F 09/21/19 00:00 09/21/19 00:15 ALLERGIES ALLERGIES: Coded Allergies: Penicillins (Verified Allergy, Intermediate, rash, 08/06/18) amoxicillin (Verified Allergy, Intermediate, rash, 08/06/18) cephalexin (Verified Allergy, Intermediate, rash, 08/06/18) clavulanic acid (Verified Allergy, Intermediate, rash, 08/06/18) cyclobenzaprine (Verified Allergy, Intermediate, 08/06/18) influenza virus vaccine trivalent (Verified Allergy, Intermediate, 08/06/18 ) metoclopramide (Verified Allergy, Intermediate, 08/06/18) ROS Review of System 14 point ROS conducted with pertinent positives noted above in HPI PHYSICAL EXAM PHYSICAL EXAM General: Alert, Oriented X3, Cooperative, mild distress HEENT: Atraumatic, Mucous membr. moist/pink Lungs: CTA Heart: Regular rate (AV paced with underlying SR), Abdomen: Soft, No tenderness Extremities: No cyanosis, No edema Skin: No breakdown, No significant lesion Neuro: Normal speech, Sensation intact Psych/Mental Status: Mental status NL, Mood NL MUSCULOSKELETAL: Osteoarthritic changes both hands VITALS/I&O VITALS/I&O: Vital Signs Date Time Temp Pulse Resp B/P (MAP) Pulse Ox O2 Delivery O2 Flow Rate FiO2 09/21/19 08:21 Nasal Cannula 3.0 09/21/19 07:47 98 09/21/19 06:25 98.1 73 20 137/63 (87) 98.1 I & O 09/20/19 09/20/19 09/21/19 15:00 23:00 07:00 Intake Total 220 ml Output Total 1250 ml Balance -1030 ml LABS Lab: Laboratory Tests Test 7/14/20 18:25 09/20/19 20:30 09/20/19 23:00 09/21/19 00:05 White Blood Count 10.0 x10^3/uL (4.0-11.0) Red Blood Count 3.24 x10^6/uL (3.50-5.40) L Hemoglobin 9.4 g/dL (12.0-15.5) L Hematocrit 28.1 % (36.0-47.0) L Mean Corpuscular Volume 87 fL (79-100) Mean Corpuscular Hemoglobin 29 pg (25-35) Mean Corpuscular Hemoglobin Concent 34 g/dL (31-37) Red Cell Distribution Width 15.6 % (11.5-14.5) H Platelet Count 188 x10^3/uL (140-400) Neutrophils (%) (Auto) 57 % (31-73) Lymphocytes (%) (Auto) 33 % (24-48) Monocytes (%) (Auto) 7 % (0-9) Eosinophils (%) (Auto) 2 % (0-3) Basophils (%) (Auto) 1 % (0-3) Neutrophils # (Auto) 5.7 x10^3/uL (1.8-7.7) Lymphocytes # (Auto) 3.4 x10^3/uL (1.0-4.8) Monocytes # (Auto) 0.7 x10^3/uL (0.0-1.1) Eosinophils # (Auto) 0.2 x10^3/uL (0.0-0.7) Basophils # (Auto) 0.1 x10^3/uL (0.0-0.2) Sodium Level 140 mmol/L (136-145) 139 mmol/L (136-145) Potassium Level 3.8 mmol/L (3.5-5.1) 4.3 mmol/L (3.5-5.1) Chloride Level 102 mmol/L (98-107) 102 mmol/L (98-107) Carbon Dioxide Level 28 mmol/L (21-32) 29 mmol/L (21-32) Anion Gap 10 (6-14) 8 (6-14) Blood Urea Nitrogen 33 mg/dL (7-20) H 35 mg/dL (7-20) H Creatinine 2.4 mg/dL (0.6-1.0) H 2.5 mg/dL (0.6-1.0) H Estimated GFR (Cockcroft-Gault) 23.0 21.9 BUN/Creatinine Ratio 14 (6-20) Glucose Level 78 mg/dL (70-99) 198 mg/dL (70-99) H Calcium Level 8.8 mg/dL (8.5-10.1) 8.6 mg/dL (8.5-10.1) Total Bilirubin 0.2 mg/dL (0.2-1.0) Aspartate Amino Transferase (AST) 27 U/L (15-37) Alanine Aminotransferase (ALT) 25 U/L (14-59) Alkaline Phosphatase 68 U/L (46-116) Troponin I Quantitative < 0.017 ng/mL (0.000-0.055) < 0.017 ng/mL (0.000-0.055) < 0.017 ng/mL (0.000-0.055) VD-Ybn-R-Type Natriuretic Peptide 2684 pg/mL (0-449) H Total Protein 6.9 g/dL (6.4-8.2) Albumin 3.6 g/dL (3.4-5.0) Albumin/Globulin Ratio 1.1 (1.0-1.7) Glucose (Fingerstick) 72 mg/dL (70-99) Test 09/21/19 03:15 White Blood Count 7.1 x10^3/uL (4.0-11.0) Red Blood Count 2.98 x10^6/uL (3.50-5.40) L Hemoglobin 8.7 g/dL (12.0-15.5) L Hematocrit 26.2 % (36.0-47.0) L Mean Corpuscular Volume 88 fL (79-100) Mean Corpuscular Hemoglobin 29 pg (25-35) Mean Corpuscular Hemoglobin Concent 33 g/dL (31-37) Red Cell Distribution Width 15.8 % (11.5-14.5) H Platelet Count 170 x10^3/uL (140-400) Neutrophils (%) (Auto) 61 % (31-73) Lymphocytes (%) (Auto) 30 % (24-48) Monocytes (%) (Auto) 7 % (0-9) Eosinophils (%) (Auto) 2 % (0-3) Basophils (%) (Auto) 1 % (0-3) Neutrophils # (Auto) 4.4 x10^3/uL (1.8-7.7) Lymphocytes # (Auto) 2.1 x10^3/uL (1.0-4.8) Monocytes # (Auto) 0.5 x10^3/uL (0.0-1.1) Eosinophils # (Auto) 0.1 x10^3/uL (0.0-0.7) Basophils # (Auto) 0.0 x10^3/uL (0.0-0.2) Sodium Level 141 mmol/L (136-145) Potassium Level 4.8 mmol/L (3.5-5.1) Chloride Level 104 mmol/L (98-107) Carbon Dioxide Level 31 mmol/L (21-32) Anion Gap 6 (6-14) Blood Urea Nitrogen 37 mg/dL (7-20) H Creatinine 2.5 mg/dL (0.6-1.0) H Estimated GFR (Cockcroft-Gault) 21.9 Glucose Level 178 mg/dL (70-99) H Calcium Level 8.7 mg/dL (8.5-10.1) Magnesium Level 2.3 mg/dL (1.8-2.4) Troponin I Quantitative < 0.017 ng/mL (0.000-0.055) Triglycerides Level 107 mg/dL (0-150) Cholesterol Level 200 mg/dL (0-200) LDL Cholesterol, Calculated 116 mg/dL (0-100) H VLDL Cholesterol, Calculated 21 mg/dL (0-40) Non-HDL Cholesterol Calculated 137 mg/dL (0-129) H HDL Cholesterol 63 mg/dL (40-60) H Cholesterol/HDL Ratio 3.2 Laboratory Tests 09/20/19 18:25 09/21/19 03:15 Laboratory Tests 09/20/19 18:25 09/21/19 00:05 09/21/19 03:15 ASSESSMENT/PLAN ASSESSMENT/PLAN 1. Chest pain, mixed features. AMI ruled out. 2. CAD; PCI/stents. Reports [employer], details unknown. Follows with Dr. Desai 3. Chronic diastolic CHF/cor pulmonale; s/p IV Lasix. appear clinically compensated 4. COPD with severe pulmonary HTN 5. CKD 6. SSS: PPM in situ.. Biotronik 7. PAFIB; AV paced with underlying SR 8. Hypertension; controlled 9. Hyperlipidemia 10. Diabetes, II 11. Hx of DVT/CVA Recommendations Lipids Echo to assess LV systolic function Resume secondary prevention Metoprolol for rate control Eliquis for stroke prophylaxis Obtain records from [facility] STEPHANE PLATT MD 09/22/19 1152: CARDIAC CONSULT ASSESSMENT/PLAN ASSESSMENT/PLAN Late entry for 09/21/2019 Pt. seen and examined. Agree with above WHEEL CUTTER note Supportive care. Thanks CHAVO VELEZ APRN Sep 21, 2019 08:53 STEPHANE PLATT MD Sep 22, 2019 11:52
--- NOTE | 2019-09-21 09:00 | PDOC1 ---
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 Past Surgical History: Appendectomy, Cholecystectomy, Hip Replacement, Knee Replacement, Other Additional Past Surgical Histo: hemorrhoids,cataracts,lumbar back Smoking Status: Never Smoker Alcohol Use: None Drug Use: None FHX OBESITY Cardiovascular: AFIB, CAD, CHF, HTN, Hyperlipidemia, Other Pulmonary: COPD, Other CENTRAL NERVOUS SYSTEM: CVA GI: GERD Heme/Onc: Anemia NOS, Other Hepatobiliary: No pertinent hx Psych: Depression Musculoskeletal: Osteoarthritis Infectious disease: No pertinent hx Renal/: Chronic renal insuff Endocrine: Diabetes Past Surgical History Past Surgical History: Pacemaker, Total knee replacement, Other Family History Family History: Other (noncontributory ) Social History ALCOHOL: none Drugs: None Current Problem List Problem List Problems Medical Problems: (1) Chest pain Status: Acute Current Medications Current Medications Current Medications Fentanyl Citrate (Fentanyl 2ml Vial) 25 mcg 1X ONCE IVP Last administered on 09/20/19at 19:30; Start 09/20/19 at 19:30; Stop 09/20/19 at 19:31; Status DC Ondansetron HCl (Zofran) 4 mg PRN Q8HRS PRN IV NAUSEA/VOMITING; Start 09/20/19 at 20:30; Stop 09/21/19 at 20:29 Fentanyl Citrate (Fentanyl 2ml Vial) 25 mcg PRN Q1HR PRN IV PAIN; Start 0 at 20:30; Stop 09/21/19 at 20:29 Furosemide (Lasix) 20 mg 1X ONCE IVP Last administered on 09/20/19at 23:36; Start 09/20/19 at 23:15; Stop 09/20/19 at 23:18; Status DC Albuterol/ Ipratropium (Duoneb) 3 ml RTQID NEB Last administered on 09/21/19at 07:45; Start 09/21/19 at 08:00 Albuterol/ Ipratropium (Duoneb) 3 ml 1X ONCE NEB Last administered on 09/20/19at 23:40; Start 09/20/19 at 23:15; Stop 09/20/19 at 23:18; Status DC Ropinirole HCl (Requip) 0.5 mg HS PO ; Start 09/21/19 at 21:00 Ropinirole HCl (Requip) 0.5 mg 1X ONCE PO Last administered on 09/21/19at 00:15; Start 09/21/19 at 00:00; Stop 09/21/19 at 00:02; Status DC Trazodone HCl (Desyrel) 50 mg QHS PO ; Start 09/21/19 at 21:00; Stop 09/21/19 at 07:29; Status DC Trazodone HCl (Desyrel) 50 mg 1X ONCE PO Last administered on 09/21/19at 00:15; Start 09/21/19 at 00:00; Stop 09/21/19 at 00:02; Status DC Acetaminophen (Tylenol) 650 mg PRN Q6HRS PRN PO MILD PAIN / TEMP > 100.3'F Last administered on 09/21/19at 00:15; Start 09/21/19 at 00:00 Active Scripts Active Reported Metoprolol Succinate ( Xl ) (Metoprolol Succinate) 25 Mg Tab.er.24h 25 Mg PO DAILY 1/2 TAB IN AM Norvasc (Amlodipine Besylate) 5 Mg Tablet 5 Mg PO HS Norvasc (Amlodipine Besylate) 5 Mg Tablet 5 Mg PO DAILY Alprazolam 0.5 Mg Tablet 0.5 Mg PRN TID PRN Sertraline Hcl 25 Mg Tablet 25 Mg PO DAILY Montelukast Sodium Tablet (Montelukast Sodium) 10 Mg Tablet 10 Mg PO HS Mag-Oxide (Magnesium Oxide) 400 Mg Tablet 800 Mg PO DAILY Requip (Ropinirole Hcl) 0.5 Mg Tablet 0.5 Mg PO HS Protonix (Pantoprazole Sodium) 40 Mg Tablet.dr 1 Tab PO DAILY Duoneb 0.5-3(2.5) Mg/3 Ml (Albuterol/Ipratropium) 3 Ml Ampul.neb 3 Ml NEB PRN Q6HRS PRN Glimepiride 4 Mg Tablet 1 Tab PO DAILY Vitamin D3 (Cholecalciferol (Vitamin D3)) 5,000 Unit Tablet 1 Tab PO WEEKLY Tylenol (Acetaminophen) 325 Mg Tablet 2 Tab PO PRN Q6HRS PRN Eliquis (Apixaban) 2.5 Mg Tablet 2.5 Mg PO BID NITROGLYCERIN SubLingual (Nitroglycerin) 0.4 Mg Tab.subl 0.4 Mg SL Allergies Allergies: Coded Allergies: Penicillins (Verified Allergy, Intermediate, rash, 08/06/18) amoxicillin (Verified Allergy, Intermediate, rash, 08/06/18) cephalexin (Verified Allergy, Intermediate, rash, 08/06/18) clavulanic acid (Verified Allergy, Intermediate, rash, 08/06/18) cyclobenzaprine (Verified Allergy, Intermediate, 08/06/18) influenza virus vaccine trivalent (Verified Allergy, Intermediate, 08/06/18) metoclopramide (Verified Allergy, Intermediate, 08/06/18) Vitals Vitals Vital Signs Date Time Temp Pulse Resp B/P (MAP) Pulse Ox O2 Delivery O2 Flow Rate FiO2 09/21/19 08:21 Nasal Cannula 3.0 09/21/19 07:47 98 09/21/19 06:25 98.1 73 20 137/63 (87) 98.1 Labs Labs Laboratory Tests Test 09/20/19 18:25 09/20/19 20:30 09/20/19 23:00 09/21/19 00:05 White Blood Count 10.0 x10^3/uL (4.0-11.0) Red Blood Count 3.24 x10^6/uL (3.50-5.40) Hemoglobin 9.4 g/dL (12.0-15.5) Hematocrit 28.1 % (36.0-47.0) Mean Corpuscular Volume 87 fL (79-100) Mean Corpuscular Hemoglobin 29 pg (25-35) Mean Corpuscular Hemoglobin Concent 34 g/dL (31-37) Red Cell Distribution Width 15.6 % (11.5-14.5) Platelet Count 188 x10^3/uL (140-400) Neutrophils (%) (Auto) 57 % (31-73) Lymphocytes (%) (Auto) 33 % (24-48) Monocytes (%) (Auto) 7 % (0-9) Eosinophils (%) (Auto) 2 % (0-3) Basophils (%) (Auto) 1 % (0-3) Neutrophils # (Auto) 5.7 x10^3/uL (1.8-7.7) Lymphocytes # (Auto) 3.4 x10^3/uL (1.0-4.8) Monocytes # (Auto) 0.7 x10^3/uL (0.0-1.1) Eosinophils # (Auto) 0.2 x10^3/uL (0.0-0.7) Basophils # (Auto) 0.1 x10^3/uL (0.0-0.2) Sodium Level 140 mmol/L (136-145) 139 mmol/L (136-145) Potassium Level 3.8 mmol/L (3.5-5.1) 4.3 mmol/L (3.5-5.1) Chloride Level 102 mmol/L (98-107) 102 mmol/L (98-107) Carbon Dioxide Level 28 mmol/L (21-32) 29 mmol/L (21-32) Anion Gap 10 (6-14) 8 (6-14) Blood Urea Nitrogen 33 mg/dL (7-20) 35 mg/dL (7-20) Creatinine 2.4 mg/dL (0.6-1.0) 2.5 mg/dL (0.6-1.0) Estimated GFR (Cockcroft-Gault) 23.0 21.9 BUN/Creatinine Ratio 14 (6-20) Glucose Level 78 mg/dL (70-99) 198 mg/dL (70-99) Calcium Level 8.8 mg/dL (8.5-10.1) 8.6 mg/dL (8.5-10.1) Total Bilirubin 0.2 mg/dL (0.2-1.0) Aspartate Amino Transf (AST/SGOT) 27 U/L (15-37) Alanine Aminotransferase (ALT/SGPT) 25 U/L (14-59) Alkaline Phosphatase 68 U/L (46-116) Troponin I Quantitative < 0.017 ng/mL (0.000-0.055) < 0.017 ng/mL (0.000-0.055) < 0.017 ng/mL (0.000-0.055) ML-Yvr-F-Type Natriuretic Peptide 2684 pg/mL (0-449) Total Protein 6.9 g/dL (6.4-8.2) Albumin 3.6 g/dL (3.4-5.0) Albumin/Globulin Ratio 1.1 (1.0-1.7) Glucose (Fingerstick) 72 mg/dL (70-99) Test 09/21/19 03:15 White Blood Count 7.1 x10^3/uL (4.0-11.0) Red Blood Count 2.98 x10^6/uL (3.50-5.40) Hemoglobin 8.7 g/dL (12.0-15.5) Hematocrit 26.2 % (36.0-47.0) Mean Corpuscular Volume 88 fL (79-100) Mean Corpuscular Hemoglobin 29 pg (25-35) Mean Corpuscular Hemoglobin Concent 33 g/dL (31-37) Red Cell Distribution Width 15.8 % (11.5-14.5) Platelet Count 170 x10^3/uL (140-400) Neutrophils (%) (Auto) 61 % (31-73) Lymphocytes (%) (Auto) 30 % (24-48) Monocytes (%) (Auto) 7 % (0-9) Eosinophils (%) (Auto) 2 % (0-3) Basophils (%) (Auto) 1 % (0-3) Neutrophils # (Auto) 4.4 x10^3/uL (1.8-7.7) Lymphocytes # (Auto) 2.1 x10^3/uL (1.0-4.8) Monocytes # (Auto) 0.5 x10^3/uL (0.0-1.1) Eosinophils # (Auto) 0.1 x10^3/uL (0.0-0.7) Basophils # (Auto) 0.0 x10^3/uL (0.0-0.2) Sodium Level 141 mmol/L (136-145) Potassium Level 4.8 mmol/L (3.5-5.1) Chloride Level 104 mmol/L (98-107) Carbon Dioxide Level 31 mmol/L (21-32) Anion Gap 6 (6-14) Blood Urea Nitrogen 37 mg/dL (7-20) Creatinine 2.5 mg/dL (0.6-1.0) Estimated GFR (Cockcroft-Gault) 21.9 Glucose Level 178 mg/dL (70-99) Calcium Level 8.7 mg/dL (8.5-10.1) Magnesium Level 2.3 mg/dL (1.8-2.4) Troponin I Quantitative < 0.017 ng/mL (0.000-0.055) Triglycerides Level 107 mg/dL (0-150) Cholesterol Level 200 mg/dL (0-200) LDL Cholesterol, Calculated 116 mg/dL (0-100) VLDL Cholesterol, Calculated 21 mg/dL (0-40) Non-HDL Cholesterol Calculated 137 mg/dL (0-129) HDL Cholesterol 63 mg/dL (40-60) Cholesterol/HDL Ratio 3.2 Laboratory Tests Test 09/20/19 18:25 09/20/19 20:30 09/20/19 23:00 09/21/19 00:05 White Blood Count 10.0 x10^3/uL (4.0-11.0) Red Blood Count 3.24 x10^6/uL (3.50-5.40) Hemoglobin 9.4 g/dL (12.0-15.5) Hematocrit 28.1 % (36.0-47.0) Mean Corpuscular Volume 87 fL (79-100) Mean Corpuscular Hemoglobin 29 pg (25-35) Mean Corpuscular Hemoglobin Concent 34 g/dL (31-37) Red Cell Distribution Width 15.6 % (11.5-14.5) Platelet Count 188 x10^3/uL (140-400) Neutrophils (%) (Auto) 57 % (31-73) Lymphocytes (%) (Auto) 33 % (24-48) Monocytes (%) (Auto) 7 % (0-9) Eosinophils (%) (Auto) 2 % (0-3) Basophils (%) (Auto) 1 % (0-3) Neutrophils # (Auto) 5.7 x10^3/uL (1.8-7.7) Lymphocytes # (Auto) 3.4 x10^3/uL (1.0-4.8) Monocytes # (Auto) 0.7 x10^3/uL (0.0-1.1) Eosinophils # (Auto) 0.2 x10^3/uL (0.0-0.7) Basophils # (Auto) 0.1 x10^3/uL (0.0-0.2) Sodium Level 140 mmol/L (136-145) 139 mmol/L (136-145) Potassium Level 3.8 mmol/L (3.5-5.1) 4.3 mmol/L (3.5-5.1) Chloride Level 102 mmol/L (98-107) 102 mmol/L (98-107) Carbon Dioxide Level 28 mmol/L (21-32) 29 mmol/L (21-32) Anion Gap 10 (6-14) 8 (6-14) Blood Urea Nitrogen 33 mg/dL (7-20) 35 mg/dL (7-20) Creatinine 2.4 mg/dL (0.6-1.0) 2.5 mg/dL (0.6-1.0) Estimated GFR (Cockcroft-Gault) 23.0 21.9 BUN/Creatinine Ratio 14 (6-20) Glucose Level 78 mg/dL (70-99) 198 mg/dL (70-99) Calcium Level 8.8 mg/dL (8.5-10.1) 8.6 mg/dL (8.5-10.1) Total Bilirubin 0.2 mg/dL (0.2-1.0) Aspartate Amino Transf (AST/SGOT) 27 U/L (15-37) Alanine Aminotransferase (ALT/SGPT) 25 U/L (14-59) Alkaline Phosphatase 68 U/L (46-116) Troponin I Quantitative < 0.017 ng/mL (0.000-0.055) < 0.017 ng/mL (0.000-0.055) < 0.017 ng/mL (0.000-0.055) EO-Sgg-Z-Type Natriuretic Peptide 2684 pg/mL (0-449) Total Protein 6.9 g/dL (6.4-8.2) Albumin 3.6 g/dL (3.4-5.0) Albumin/Globulin Ratio 1.1 (1.0-1.7) Glucose (Fingerstick) 72 mg/dL (70-99) Test 09/21/19 03:15 White Blood Count 7.1 x10^3/uL (4.0-11.0) Red Blood Count 2.98 x10^6/uL (3.50-5.40) Hemoglobin 8.7 g/dL (12.0-15.5) Hematocrit 26.2 % (36.0-47.0) Mean Corpuscular Volume 88 fL (79-100) Mean Corpuscular Hemoglobin 29 pg (25-35) Mean Corpuscular Hemoglobin Concent 33 g/dL (31-37) Red Cell Distribution Width 15.8 % (11.5-14.5) Platelet Count 170 x10^3/uL (140-400) Neutrophils (%) (Auto) 61 % (31-73) Lymphocytes (%) (Auto) 30 % (24-48) Monocytes (%) (Auto) 7 % (0-9) Eosinophils (%) (Auto) 2 % (0-3) Basophils (%) (Auto) 1 % (0-3) Neutrophils # (Auto) 4.4 x10^3/uL (1.8-7.7) Lymphocytes # (Auto) 2.1 x10^3/uL (1.0-4.8) Monocytes # (Auto) 0.5 x10^3/uL (0.0-1.1) Eosinophils # (Auto) 0.1 x10^3/uL (0.0-0.7) Basophils # (Auto) 0.0 x10^3/uL (0.0-0.2) Sodium Level 141 mmol/L (136-145) Potassium Level 4.8 mmol/L (3.5-5.1) Chloride Level 104 mmol/L (98-107) Carbon Dioxide Level 31 mmol/L (21-32) Anion Gap 6 (6-14) Blood Urea Nitrogen 37 mg/dL (7-20) Creatinine 2.5 mg/dL (0.6-1.0) Estimated GFR (Cockcroft-Gault) 21.9 Glucose Level 178 mg/dL (70-99) Calcium Level 8.7 mg/dL (8.5-10.1) Magnesium Level 2.3 mg/dL (1.8-2.4) Troponin I Quantitative < 0.017 ng/mL (0.000-0.055) Triglycerides Level 107 mg/dL (0-150) Cholesterol Level 200 mg/dL (0-200) LDL Cholesterol, Calculated 116 mg/dL (0-100) VLDL Cholesterol, Calculated 21 mg/dL (0-40) Non-HDL Cholesterol Calculated 137 mg/dL (0-129) HDL Cholesterol 63 mg/dL (40-60) Cholesterol/HDL Ratio 3.2 VTE Prophylaxis Ordered VTE Prophylaxis Devices: No Justicifation of Admission Dx: Justifications for Admission: Justification of Admission Dx: Yes MARYAM HEREDIA MD Sep 21, 2019 09:00
[2019-09-21 11:00] VITALS: BP 152/64
[2019-09-21] MEDS ORDERED: BENZOCAINE/MENTHOL LOZENGE. PO PRN (12:00)
--- NOTE | 2019-09-21 12:55 | NUR ---
SS following for discharge planning. SS reviewed pt chart and discussed with pt RN. Pt is from home with daughter and is currently requiring oxygen. Pt has home oxygen at home. Rehab screen ordered. SS will continue to follow for discharge planning.
[2019-09-21 15:00] VITALS: BP 141/59
[2019-09-21] MEDS ORDERED: AMLO10TA8 PO (17:24)
[2019-09-21 20:00] VITALS: BP 116/50
[2019-09-21] MEDS ORDERED: rOPINIRole 0.25 MG TABLET. PO SCH (21:00)
[2019-09-21] MEDS ORDERED: ATORVASTATIN CALCIUM 20 MG TABLET PO SCH (21:00)
[2019-09-21] MEDS ORDERED: traZODone 50 MG TABLET. PO SCH (21:00)
[2019-09-21] MEDS ORDERED: amLODIPine BESYLATE 5 MG TABLET PO SCH (21:00)
[2019-09-21 23:00] VITALS: BP 168/77
[2019-09-22 03:00] VITALS: BP 175/72
[2019-09-22 07:15] VITALS: BP 141/58
[2019-09-22] MEDS: IPRATRPIUM/ALBUTEROL 0.5/2.5MG 3 ML NEBU. NEB SCH ×2 (07:39→11:32)
[2019-09-22] MEDS ORDERED: METOPROLOL SUCC 24HR ER 25 MG TAB.ER.24H. PO SCH (09:00)
[2019-09-22] MEDS ORDERED: amLODIPine BESYLATE 5 MG TABLET PO SCH (09:00)
[2019-09-22] MEDS ORDERED: amLODIPine BESYLATE 10 MG TABLET PO SCH (09:00)
[2019-09-22 10:58] VITALS: BP 126/48
--- NOTE | 2019-09-22 10:58 | CARD ---
MR#: [id number] Date of Study: 09/22/2019 Ordering Physician: CHAVO VELEZ, Referring Physician: CHAVO VELEZ, Tech: Aleisha Parra [facility] APPROVED REPORT EXAM: Two-dimensional and M-mode echocardiogram with Doppler and color Doppler. Other Information Quality : Good INDICATION Cardiac Disease: CAD Chest Pain 2D DIMENSIONS RVDd3.1 (2.9-3.5cm)Left Atrium(2D)4.2 (1.6-4.0cm) IVSd1.5 (0.7-1.1cm)Aortic Root(2D)2.7 (2.0-3.7cm) LVDd3.9 (3.9-5.9cm)LVOT Diameter2.0 (1.8-2.4cm) PWd0.8 (0.7-1.1cm)LVDs2.7 (2.5-4.0cm) FS (%) 30.8 %SV38.8 ml LVEF(%)59.0 (>50%) Aortic Valve AoV Peak Milad.207.4cm/sAoV VTI41.4cm AO Peak GR.17.2mmHgLVOT VTI 29.26cm AO Mean GR.10mmHgAVA (VTI)2.18cm2 AI P 1/2 [id number] Mitral Valve MV E Pkdwxmkn070.5cm/sMV DECEL [id number] TDI Lateral E' P. V8.69cm/sMedial E' P. V4.44cm/s E/Lateral E'11.6E/Medial E'22.6 Tricuspid Valve TR P. Lwnjyfgq032nu/sRAP APNUGYNL8xrVh TR Peak Gr.29slBeFJGW88sxZc Pulmonary Vein S1 Akuisyrj38.9cm/sS2 Mhulqmeg040.09cm/s D2 Codfvbir651.1cm/s LEFT VENTRICLE The left ventricle is normal size. There is mild asymmetric septal left ventricular hypertrophy. The left ventricular systolic function is normal. The Ejection Fraction is 55-60%. There is normal LV seg mental wall motion. RIGHT VENTRICLE The right ventricle is normal size. The right ventricular systolic function is normal. ATRIA The left atrium is mildly dilated. The right atrium size is normal. The interatrial septum is intact with no evidence for an atrial septal defect or patent foramen ovale as noted on 2-D or Doppler imagi ng. AORTIC VALVE The aortic valve is not well visualized but appears to be functioning normally by Doppler interrogati on. Doppler and Color Flow revealed mild aortic regurgitation. There is no significant aortic valvula r stenosis. MITRAL VALVE The mitral valve is calcified but opens well. There is no evidence of mitral valve prolapse. There is no mitral valve stenosis. Doppler and Color-flow revealed trace to mild mitral regurgitation. TRICUSPID VALVE The tricuspid valve is normal in structure and function. Doppler and Color Flow revealed mild tricusp id regurgitation. There is moderate pulmonary hypertension. The PA pressure was estimated at 51 mmHg. There is no tricuspid valve stenosis. PULMONIC VALVE The pulmonic valve is not well visualized. Doppler and Color Flow revealed no pulmonic valvular regur gitation. There is no pulmonic valvular stenosis. GREAT VESSELS The aortic root is normal in size. The ascending aorta is normal in size. The IVC is normal in size a nd collapses >50% with inspiration. PERICARDIAL EFFUSION There is no evidence of significant pericardial effusion. Critical Notification Critical Value: No <Conclusion> The left ventricular systolic function is normal. The Ejection Fraction is 55-60%. There is normal LV segmental wall motion. Mild aortic regurgitation. Trace to mild mitral regurgitation. Mild tricuspid regurgitation. There is moderate pulmonary hypertension. The PA pressure was estimated at 51 mmHg. There is no evidence of significant pericardial effusion. Signed by : Jose Juan Solorzano, Electronically Approved : 09/22/2019 10:57:48
--- NOTE | 2019-09-22 11:10 | NUR ---
SS following up with discharge planning. SS reviewed pt chart and discussed with pt RN. Pt is currently on room air. PT/OT ordered. Pt had ECHO today. Possible discharge to home today if cardiology signs off. SS will continue to follow for discharge planning.
--- NOTE | 2019-09-22 13:35 | NUR ---
SS following up with discharge planning. PT recommended home with home healthcare. SS met with pt and discussed discharge planning and home healthcare. Pt declined home healthcare. She reported that she has home oxygen. She reported that she has eight children and twenty-one grandchildren that can assist with her care. She reported that her daughter was an RN. Pt's RN notified. SS will continue to follow for discharge planning.
[2019-09-22 14:43] VITALS: BP 128/61
--- NOTE | 2019-09-22 14:56 | DS ---
DATE OF DISCHARGE: 09/22/2019 HOSPITAL COURSE: The patient is an 89-year-old -[place], very pleasant female lady who came to the Emergency Room of [facility] complaining of 2 days of chest pain. The pain is substernal mostly in the left chest, at times radiates up to her left neck, and the pain also has been constant since onset with some shortness of breath and had some nausea. She rates her pain around 4/10. She was given aspirin in the Emergency Room and took nitro with minimal relief. She was evaluated initially in the Emergency Room and her first set of cardiac enzyme showed troponin to be less than 0.017. She was admitted, had 3 more sets of cardiac enzymes, all of them showed troponin to be less than 0.017; has had an echocardiogram, which showed that her left ventricular systolic function is normal, ejection fraction is 55-60%. There is normal left ventricular segmental wall motion. She does have mild aortic regurgitation, [id number] mitral regurgitation, mild tricuspid regurgitation. There is moderate pulmonary hypertension. Her pulmonary artery pressure was estimated at 51 mmHg. There is no evidence of significant pericardial effusion. Tonight, the patient remained stable and chest pain-free. Her shortness of breath has responded to Lasix and as she remained stable, a decision was made to discharge her home. She lives with her family and refused home health. PHYSICAL EXAMINATION: GENERAL: When I saw her this afternoon, she was sitting in her chair comfortably in no apparent distress. She was pale, but no jaundice, cyanosis, or thyromegaly. No jugular venous distension. No limb edema. VITAL SIGNS: Her heart rate was 76, blood pressure was 126/48, temperature 98.5, respiratory rate was 18, and oxygen saturation was 96% on 2 liters of oxygen. HEAD, EYES, EARS, NOSE, AND THROAT: Showed normocephalic, atraumatic. NECK: Supple. HEART: Showed normal first and second heart sounds. No gallop or murmur. CHEST: Clear to auscultation. No crepitation or rhonchi. ABDOMEN: Distended, soft, nontender. No guarding or rigidity. No organomegaly. All hernial orifice intact. Bowel sounds normal. NEUROLOGIC: She was awake, alert, responding appropriately. She ambulates with a walker. Her intake over the last 24 hours was incompletely recorded, output was 1250. LABORATORY DATA: Her lab work showed a white cell count 7100, hemoglobin 8.7, hematocrit 26, MCV 88 and platelet count of 170,000. Her chemistry showed a serum sodium 141, potassium 4.8, chloride 104, bicarbonate 31, anion gap of 6, BUN 37, creatinine 2.5, estimated GFR was 22 mL per minute. Her glucose 178, calcium was 8.7, magnesium was 2.3. Her serum triglycerides were 107. Total cholesterol 200, LDL was 116, VLDL was 21, HDL was 63 and ratio was 3.2. DISCHARGE MEDICATIONS: She was discharged home to continue on Tylenol 650 mg every 6 hours as needed, alprazolam 0.5 mg 3 times a day for anxiety, amlodipine besylate 10 mg daily, apixaban 2.5 mg twice a day, cholecalciferol vitamin D3 5000 units once a week, glimepiride 4 mg once a day, ipratropium bromide, albuterol sulfate 0.5-2.5 mg in 3 mL by nebulizer every 6 hours, magnesium oxide 400 mg once a day, metoprolol succinate 25 mg once a day, montelukast or Singulair 10 mg once a day, nitroglycerin 0.4 mg sublingually every 5 minutes x 3, Protonix 40 mg once a day, Requip 0.5 mg at bedtime, sertraline 25 mg once a day. FINAL DISCHARGE DIAGNOSES: 1. Chest pain with mixed features, acute myocardial infarction was ruled out. 2. Coronary artery disease, status post percutaneous coronary intervention with stent deployment. 3. 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 4. Chronic obstructive pulmonary disease with severe pulmonary hypertension. 5. Chronic kidney disease with a stable creatinine of around 2.5. 6. Sick sinus syndrome, status post permanent pacemaker in place, it is Biotronik. 7. Paroxysmal atrial fibrillation, rate controlled. 8. Hypertension, well controlled. 9. Hyperlipidemia. 10. Type 2 diabetes also seemed to be very controlled. 11. History of deep vein thrombosis and cerebrovascular accident. DISCHARGE INSTRUCTIONS: The patient will be discharged home to follow with her primary care physician and sueding machine tender, Dr. Desai. MEL LOPEZ MD DR: YAO/renee JOB#: [id number] / [id number]
--- NOTE | 2019-09-22 15:09 | NUR ---
Pt left unit at approx 1505 by wheelchair via private vehicle. Pt accompanied by daughter. Pt's IV removed, VSS. Discharge paperwork discussed with pt and daughter at bedside and sent with pt at time of discharge.
--- NOTE | 2019-09-22 15:25 | PDOC ---
CHAVO VELEZ CHIVO 09/22/19 1525: CARDIO Progress Notes Date and Time Date of Service 09/22/19 Time of Evaluation 1115 Subjective Subjective: No Chest Pain, No shortness of breath, No Palpitations Vitals Vitals Vital Signs Date Time Temp Pulse Resp B/P (MAP) Pulse Ox O2 Delivery O2 Flow Rate FiO2 09/22/19 14:43 98.0 67 18 128/61 (83) 96 Nasal Cannula 98.0 09/22/19 11:33 2.0 Weight Weight [ ] Input and Output Intake and Output Intake and Output 09/22/19 06:59 Intake Total 360 ml Output Total 1650 ml Balance -1290 ml Intake Oral 360 ml Output Urine Total 1650 ml Laboratory Labs Laboratory Tests Test 09/21/19 16:22 09/21/19 20:57 09/22/19 07:33 Glucose (Fingerstick) 208 mg/dL (70-99) 237 mg/dL (70-99) 136 mg/dL (70-99) Physical Exam HEENT: Neck Supple W Full Motion Chest: Symmetric LUNGS: Clear to Auscultation Abdomen: Soft N/T Extremities: No Edema Neurology: alert, oriented, follow commands, other (forgetful ) Assessment Assessment 1. Chest pain, mixed features. AMI ruled out. Echo with preserved LV systolic function. Possibly GI related. 2. CAD; PCI/stents. Reports ACADEMIC SUPPORT COORDINATOR, details unknown. Follows with Dr. Desai 3. Chronic diastolic CHF/cor pulmonale; clinically compensated 4. COPD with severe pulmonary HTN 5. CKD 6. SSS: PPM in situ. (Biotronik) 7. PAFIB; AV paced with underlying SR 8. Hypertension; controlled 9. Hyperlipidemia 10. Diabetes, II 11. Hx of DVT/CVA Recommendations Continue secondary prevention Metoprolol for rate control Eliquis for stroke prophylaxis May discharge from a CV standpoint Follow up with primary patient service technician pst, Dr. Desai Justicifation of Admission Dx: Justifications for Admission: Justification of Admission Dx: Yes STEPHANE PLATT MD 09/22/192054: CARDIO Progress Notes Attending Co-Sign The patient was seen and interviewed as well as examined at the bedside. The chart was reviewed. The case was discussed. Agree with the plan of care. AGUSTINCHAVOAUNG WALDRON Sep 22, 2019 15:25 STEPHANE PLATT MD Sep 22, 2019 20:55
--- NOTE | 2019-09-28 12:15 | HP ---
ADMIT DATE: HISTORY OF PRESENT ILLNESS: The patient is an 89-year-old -[place] female patient who came to the emergency room of [facility] with a complaint of chest pain that started about 2 days ago. The chest pain was substernal, more towards the left side. At times, it radiates to her left neck. She states the pain has been constant since onset. She said that she has some shortness of breath, has some nausea, but no vomiting or diaphoresis. She rated her pain as 4/10. She was treated by EMS with aspirin and apparently she took nitroglycerin at home without any effect. She was evaluated in the emergency room and her EKG showed that she was in sinus rhythm with intraventricular block, rate of 75. Chest x-ray was unremarkable. Her first set of cardiac enzyme was less than 0.017. The patient was admitted to do 2 more sets of cardiac enzyme and to consult the Cardiology team. PAST MEDICAL HISTORY: Significant for paroxysmal atrial fibrillation, coronary artery disease, chronic diastolic congestive heart failure, hypertension, hyperlipidemia, peripheral vascular disease, chronic obstructive pulmonary disease, severe pulmonary hypertension, cerebrovascular accident, gastroesophageal reflux disease, anemia of chronic kidney disease. She has chronic kidney disease as well as type 2 diabetes. PAST SURGICAL HISTORY: Significant for bilateral total knee arthroplasty, permanent pacemaker placement and PCI with stent deployment. FAMILY HISTORY: Noncontributory. SOCIAL HISTORY: She lives with her son. She does not smoke, drink alcohol or use recreational drugs. MEDICATIONS: She is currently on following medications: She is on ipratropium bromide, albuterol sulfate by nebulizer every 6 hours, apixaban 2.5 mg twice a day, nitroglycerin 0.4 mg sublingually every 5 minutes x 3, metoprolol succinate 25 mg once a day, amlodipine 10 mg once a day, Tylenol 650 mg every 6 hours, sertraline 25 mg once a day, alprazolam 0.5 mg 3 times a day, Requip 0.5 mg at bedtime, Singulair 10 mg at bedtime. She is on magnesium oxide 400 mg once a day, Protonix 40 mg once a day, glimepiride 4 mg daily and cholecalciferol, vitamin D3 5000 units weekly. REVIEW OF SYSTEMS: As per history of present illness. PHYSICAL EXAMINATION: GENERAL: On arrival to the emergency room, the patient looked well and was clearly in no apparent respiratory distress. She is mildly pale, no jaundice, cyanosis or thyromegaly. No jugular venous distention. No limb edema. VITAL SIGNS: Her heart rate was 95, blood pressure was 123/60, temperature 98.1, respiratory rate was 18 and oxygen saturation was 98% on 3 liters of oxygen. HEAD, EYES, EARS, NOSE AND THROAT: Normocephalic, atraumatic. NECK: Supple. CARDIAC: Normal first and second heart sounds. No gallop or murmur. CHEST: Clear to auscultation. No crepitation or rhonchi. ABDOMEN: Distended, soft, nontender. NEUROLOGIC: She was grossly intact. LABORATORY DATA: Showed a serum sodium 140, potassium 3.8, chloride 102, bicarbonate 28, anion gap of 10, BUN 33, creatinine 2.4, estimated GFR was 23 mL per minute. Her glucose was 78, calcium was 8.8. Total bilirubin, AST, ALT, alkaline phosphatase were normal. Her total protein was 6.9, albumin was 3.6. Her white cell count was 10,000, hemoglobin 9, hematocrit 28, MCV 87 and platelet count of 188,000. Her first set of cardiac enzymes showed troponin to be less than 0.017. PLAN: The patient was admitted to do 2 more sets of cardiac enzymes, check her fasting lipid profile and consult the Cardiology team. MEL LOPEZ MD DR: YAO/renee JOB#: [id number] / [id number]
== END 2019-09-22 15:00 | disposition home or self-care (01) | DRG 313 ==
LOC: ER 18:08 → 2 SOUTH 20:16 → OBSVTOIN 09-21 14:15
PROVIDERS: ADMIT Internal Medicine; ATTEND Internal Medicine
DX: R07.89 Other chest pain (principal); I13.0 Hypertensive heart and chronic kidney disease with heart failure and stage 1 through stage 4 chronic kidney disease, or unspecified chronic kidney disease; I50.32 Chronic diastolic (congestive) heart failure; I69.351 Hemiplegia and hemiparesis following cerebral infarction affecting right dominant side; E78.5 Hyperlipidemia, unspecified; I25.10 Atherosclerotic heart disease of native coronary artery without angina pectoris; I27.29 Other secondary pulmonary hypertension; I27.81 Cor pulmonale (chronic); I48.0 Paroxysmal atrial fibrillation; I49.5 Sick sinus syndrome; J44.9 Chronic obstructive pulmonary disease, unspecified; N18.9 Chronic kidney disease, unspecified; Z86.718 Personal history of other venous thrombosis and embolism; Z90.49 Acquired absence of other specified parts of digestive tract; Z95.0 Presence of cardiac pacemaker; Z95.5 Presence of coronary angioplasty implant and graft; Z96.649 Presence of unspecified artificial hip joint; Z96.653 Presence of artificial knee joint, bilateral; E11.22 Type 2 diabetes mellitus with diabetic chronic kidney disease; F32.9 Major depressive disorder, single episode, unspecified; K21.9 Gastro-esophageal reflux disease without esophagitis; M19.90 Unspecified osteoarthritis, unspecified site; Z88.1 Allergy status to other antibiotic agents; Z88.2 Allergy status to sulfonamides; Z88.8 Allergy status to other drugs, medicaments and biological substances; Z88.7 Allergy status to serum and vaccine
CPT/HCPCS: 36415; 71045; 80048; 80053; 80061; 82962; 83735; 83880; 84484; 85025; 93005; 93306; 94640; 96374; 99285; G0378; G0379; J1940; J3010